=== PATIENT | female | born 1975 | race Hispanic/Latino ===

== ENCOUNTER 2017-02-21 16:04 | Emergency (ER) | payer OTHER ==
[~2017-02-21] VITALS: Ht 160 cm; Wt 76.2 kg
[~2017-02-21 16:04] MED LIST: CIPRO 500MG TA500 MG PO; FLAG500 PO; KEFLEX500 MG PO; LEVSIN-SL0.125 MG SL; MOTRIN 600 MG600 MG PO; ULTRAM(MONOGRAP50 MG PO; ZOFRAN ODT4 M1 SL
[2017-02-21 16:07] VITALS: BP 123/78
[2017-02-21] MEDS ORDERED: DOXYCYCLINE HY100 M4 PO (17:26)
--- NOTE | 2017-02-21 17:27 | ED GENERAL ADULT ---
History of Present Illness General Chief Complaint: Skin Rash/ Abcess Stated Complaint: BUMP ON BACK OF HEAD AND NECK NO INJURY Source: patient Exam Limitations: no limitations Vital Signs & Intake/Output Vital Signs & Intake/Output Vital Signs Date Time Temp Pulse Resp B/P Pulse O2 O2 Flow FiO2 Ox Delivery Rate 02/21 1732 97 02/21 1607 98.8 86 16 123/78 98 Room Air ED Intake and Output 02/22 0000 02/21 1200 Intake Total 0 Output Total Balance 0 Intake, Oral 0 Patient 168 lb Weight Allergies Coded Allergies: NO KNOWN ALLERGIES (06/23/11) Reconcile Medications Doxycycline Hyclate 100 MG TABLET 1 TAB PO BID lymp node swelling Hyoscyamine Sulfate (Levsin-Sl) 0.125 MG TAB.SUBL 1 TAB SL Q6P PRN abd pain Ondansetron (Zofran Odt) 4 MG TAB.RAPDIS 1 TAB SL Q6P PRN nausea/vomiting Triage Note: PT STATES THAT SHE HAS HAD A BUMP TO BACK OF HEAD FOR THE PAST 2 DAYS , TENDER TO TOUCH. Triage Nurses Notes Reviewed? yes Onset: Abrupt Duration: day(s):, constant, continues in ED Timing: recent history Injury Environment: home Severity: mild, moderate No Modifying Factors: none : No Patient currently breastfeeds: No HPI: 41-year-old female comes into the emergency room for further evaluation of bump to the back of her neck and one on the top of her head. Slightly painful. Denies any fever chills vomiting. Denies any other associated symptoms such as runny nose cough congestion. Denies any past medical history. Denies any other associated symptoms. (ALLISON ESPINAL) Past History Travel History Traveled to [place] past 21 day No Medical History Any Pertinent Medical History? see below for history Neurological: NONE EENT: NONE Cardiovascular: NONE Respiratory: NONE Gastrointestinal: NONE Hepatic: NONE Renal: NONE Musculoskeletal: NONE Psychiatric: NONE Endocrine: NONE Blood Disorders: NONE Cancer(s): NONE BOOKKEEPING MANAGER/Reproductive: NONE Surgical History Surgical History: non-contributory Psychosocial History What is your primary language Arabic Tobacco Use: Current Daily Use Daily Tobacco Use Amount/Type: => 5 Cigarettes daily ETOH Use: denies use Illicit Drug Use: denies illicit drug use Family History Hx Contributory? No (ALLISON ESPINAL) Review of Systems Review of Systems Constitutional: Reports: no symptoms. EENTM: Reports: no symptoms. Respiratory: Reports: no symptoms. Cardiovascular: Reports: no symptoms. GI: Reports: no symptoms. Genitourinary: Reports: no symptoms. Musculoskeletal: Reports: no symptoms. Skin: Reports: see HPI. Neurological/Psychological: Reports: no symptoms. Hematologic/Endocrine: Reports: no symptoms. Immunologic/Allergic: Reports: see HPI. All Other Systems: Reviewed and Negative (ALLISON ESPINAL) Physical Exam Physical Exam General Appearance: well developed/nourished, no apparent distress, alert Head: atraumatic, small nodule to scalp Eyes: Bilateral: normal appearance, EOMI. Ears, Nose, Throat: normal pharynx, normal ENT inspection, hearing grossly normal Neck: normal inspection, posterior cervical lymphadenopathy Respiratory: normal breath sounds, no respiratory distress Cardiovascular: regular rate/rhythm Gastrointestinal: soft Back: normal inspection Extremities: normal inspection, normal range of motion Neurologic/Psych: awake, alert, oriented x 3, normal gait, normal mood/affect Skin: intact, normal color Core Measures ACS in differential dx? No CVA/TIA Diagnosis: No Severe Sepsis Present: No Septic Shock Present: No (ALLISON ESPINAL) Progress Differential Diagnoses I considered the following diagnoses in my evaluation of the patient: Lymphadenitis, pharyngitis, sinusitis, lymphoma, abscess, cyst, Plan of Care: see below Initial ED EKG: none Comments: 02/21/2017 6:32:37 PM Patient clinically looks well. Patient is in no apparent distress. Patient is nontoxic-appearing. Patient has what appears to be a swollen lymph node. Patient started on oral antibiotics in case of lymphadenitis. Return if any other concerns worsening symptoms. Patient understands and agrees with plan of care. (ALLISON ESPINAL) Departure Departure Disposition: HOME OR SELF CARE Condition: Stable Clinical Impression Primary Impression: Swollen lymph nodes Referrals: SHAMAR ANDERSEN APRN (PCP/Family) Additional Instructions: Take doxycycline as prescribed. Follow-up with your primary care doctor. Return if any concerns worsening symptoms. Please go over all results of today's visit with your primary care doctor. Contact your primary care doctor to let them know you were here in the emergency room. There may be nonspecific findings which may not be related to your visit today here in the emergency room but may require further evaluation and chronic monitoring by your primary care doctor. If you had a laceration today the chance of foreign body always remains. You should follow-up with your primary care doctor for recheck in 3-5 days for a wound check. If you had an x-ray done there is a chance that a fracture could have been missed on initial read and you should follow-up with your primary care doctor for repeat x-rays if symptoms persist. If your blood pressure was elevated here in the emergency room please have rechecked by her primary care doctor within the next 48 hours by your primary care doctor. If you were prescribed a narcotic here in the emergency room or any type of controlled substances you're not allowed to drive while taking this medication or operate any type of heavy machinery. Narcotics can make you feel lightheaded dizziness nausea and can cause constipation. You may need to continuous pickling line pickler a stool softener. Thank you for choosing [facility] emergency room. Please return to the emergency room immediately if you have any other concerns worsening of symptoms. Departure Forms: Customer Survey General Discharge Information Prescriptions: Current Visit Scripts Doxycycline Hyclate 1 TAB PO BID #20 TAB (ALLISON ESPINAL) PA/TOOLMAKER HELPER Co-Sign Statement Statement: ED Attending supervision documentation- [] I saw and evaluated the patient. I have also reviewed all the pertinent lab results and diagnostic results. I agree with the findings and the plan of care as documented in the PA's/TOOLMAKER HELPER's documentation. [X] I have reviewed the ED Record and agree with the PA's/TOOLMAKER HELPER's documentation. [] Additions or exceptions (if any) to the PAs/TOOLMAKER HELPER's note and plan are summarized below: [] (ARIAN RENE,OLIVIA) Critical Care Note Critical Care Note Critical Care Time: non-applicable (ALLISON ESPINAL)
== END 2017-02-21 17:30 ==
LOC: ERH 16:04
DX: R59.0 Localized enlarged lymph nodes (principal)